=== PATIENT | female | born 1975 | race African-American/Black ===

== ENCOUNTER 2024-09-01 14:28 | Emergency (ER) | payer BC, OTHER ==
[~2024-09-01] VITALS: Ht 152.4 cm; Wt 100.5 kg
[2024-09-01 16:10] VITALS: BP 155/90; PULSE 88; RESP 16; TEMP 97.7; O2SAT 97
[2024-09-01] MEDS: HYDROcodone-ACET 10/325MG TAB PO ONE (16:49)
--- NOTE | 2024-09-01 17:31 | DVH ---
EXAM: XR Right Foot Complete, 3 or More Views CLINICAL INDICATION: foot pain/ r/o fracture TECHNIQUE: Frontal, lateral and oblique views of the right foot. COMPARISON: None FINDINGS: BONES/JOINTS: See below. SOFT TISSUES: Soft tissue swelling without acute fracture. No radiopaque foreign body. OTHER FINDINGS: . IMPRESSION: 1. Soft tissue swelling without acute fracture. 2. If symptoms persist, further evaluation with CT is recommended.
[2024-09-01] MEDS ORDERED: NAPR-746 PO (17:50)
[2024-09-01] MEDS ORDERED: HYDR-4902 PO (17:50)
--- NOTE | 2024-09-01 17:51 | ED.PDOC ---
Musculoskeletal HPI Comments 48 year old presents for atraumatic R foot pain see triage note Chief Complaint: Lower Extremity Time Seen by MD: 15:53 Primary Care Provider: DAKOTA Reviewed Notes: Nurses Notes, Medications, Allergies Allergies: Coded Allergies: Ibuprofen (Verified Allergy, Unknown, 09/01/24) Home Meds Active Scripts Naproxen (Naproxen) 500 Mg Tab, 500 MG PO BIDPC for 7 Days, #14 TAB 0 Refills Prov:HUGO MACEDO [facility] 09/01/24 Hydrocodone-Acetaminophen (Hydrocodone Bitartrate/AC 5-325 mg) 1 Tab Tab, 1 TAB PO Q8HP PRN for 2 Days, #6 TAB 0 Refills Prov:HUGO MACEDO [facility] 09/01/24 Information Source: Patient Mode of Arrival: Ambulatory All Other Systems: Reviewed and Negative (Per hpi) Physical Exam General Appearance: No Apparent Distress, Normal HEENT: Normal ENT Inspection, Pharynx Normal, TMs Normal Neck: Full Range of Motion, Non-Tender, Normal, Normal Inspection Respiratory: Chest Non-Tender, Lungs Clear, No Accessory Muscle Use, No Respiratory Distress, Normal Breath Sounds Cardiovascular: No Edema, No JVD, No Murmur, No Gallop, Normal Peripheral Pulses, Regular Rate/Rhythm Breast Exam: Deferred Gastrointestinal: No Organomegaly, Non Tender, No Pulsatile Mass, Normal Bowel Sounds, Soft Genitalia: Deferred Pelvic: Deferred Rectal: Deferred Extremities: No calf tenderness, Normal capillary refill, Normal inspection, Normal range of motion, Non-tender, No pedal edema Musculoskeletal : Location: Right Extremity Location: Foot (no gross abnormality on inspection. localized TTP) Apperance: Normal Neurologic: Alert, ripsawyer II-XII nml as Tested, No Motor Deficits, Normal Affect, Normal Mood, No Sensory Deficits Cerebellar Function: Normal Reflexes: Normal Skin: Dry, Normal Color, Warm Lymphatic: No Adenopathy Was a procedure done? Was a procedure done?: No Differential Diagnosis EXT Differential Diagnosis: Fracture, Sprain X-Ray, Labs, Meds, VS Vital Signs Date Time Temp Pulse Resp B/P (MAP) Pulse Ox O2 Delivery O2 Flow Rate FiO2 09/01/24 16:10 97.7 88 16 155/90 (111) 97 97.7 09/01/24 16:10 88 16 97 Room Air 3/12/25 14:55 97.7 88 16 155/90 (329) 97 X-Ray, Labs, Meds, VS Comment Checked the [employer] website, no history of narcotic use within the past year. Will prescribe [place] p.o. for pain management. Education provided on possible side effects of medication including drowsiness, nausea, respiratory distress, etc. Do not drive, operate heavy machinery or make legal decisions while taking medication. Follow-up with your PMD within 24 to 48 hours. On reevaluation, patient had symptomatic improvement. Patient is stable for discharge at this time. External notes reviewed. Test results and diagnostic imaging interpreted. All diagnostic findings, discharge care, education and instructions provided Follow-up with PCP in 2 to 3 days Patient verbalized understanding and agreed to treatment plan Vital signs stable, afebrile, no acute distress noted Patient ambulatory with strong steady gait Advised to return precautions for any new or worsening symptoms, return to ER immediately for re-evaluation Patient is aware that the purpose of this visit was for an acute medical emergency requiring emergent stabilization. Chronic conditions, including malignancies have not been ruled out. Patient is instructed to follow up with PCP as directed and discharge instructions for continued care and workup. If unable to arrange follow-up, patient is to return to the emergency department for reassessment. Patient (parent or legal guardian if applicable) was given verbal and written discharge instructions and acknowledges understanding. Time of 1ST Reevaluation: 17:45 Reevaluation 1ST: Improved Patient Education/Counseling: Diagnosis, Treatment Family Education/Counseling: Diagnosis, Treatment Departure 1 Departure Time of Disposition: 17:48 Impression: Primary Impression: Right foot pain Disposition: 01 HOME / SELF CARE / HOMELESS Condition: Stable e-Prescriptions Naproxen (Naproxen) 500 Mg Tab 500 MG PO BIDPC for 7 Days, #14 TAB 0 Refills Prov: HUGO MACEDO [facility] 09/01/24 Hydrocodone-Acetaminophen (Hydrocodone Bitartrate/AC 5-325 mg) 1 Tab Tab 1 TAB PO Q8HP PRN for 2 Days, #6 TAB 0 Refills Prov: HUGO MACEDO [facility] 09/01/24 Critical Care Note Critical Care Time?: No Stability Stability form required: No Heart Score Heart Score: Heart Score Response (Comments) Value History N/A 0 EKG N/A 0 Age N/A 0 Risk Factors N/A 0 Troponin N/A 0 Total 0 HUGO MACEDO NP Sep 01, 2024 17:51
== END 2024-09-01 17:57 | disposition home or self-care (01) ==
LOC: ER 14:28
DX: M79.671 Pain in right foot (principal); Z88.6 Allergy status to analgesic agent
CPT/HCPCS: 73630